=== PATIENT | female | born 1965 | race Caucasian/White ===

== ENCOUNTER → 2016-08-07 | Outpatient (CLI) | payer MEDICARE ==
[2016-08-07 15:01] LABS: CHCM 32.9; Hypochromasia Slight; Mean Platelet Volume 6.9; Poikilocytosis Slight
[2016-08-07 15:07] LABS: CH 27.3; HCT 40.6 % (34.0-46.0); HDW 3.58; HGB 13.7 gm/dL (11.4-16.0); MCH 28.1 pg (25.0-35.0); MCHC 33.8 g/dL (31.0-37.0); MCV 83.1 fL (80.0-100.0); RBC 4.88 m/uL (3.80-5.40); RDW 15.8 % (11.5-15.5); WBC 9.6 k/uL (3.8-10.6)
[2016-08-07 15:08] LABS: ALT 20 U/L (9-52); AST 18 U/L (14-36); Alkaline Phosphatase 113 U/L (38-126); Anion Gap 13 mmol/L; Blood Urea Nitrogen 11 mg/dL (7-17); Calcium 9.6 mg/dL (8.4-10.2); Carbon Dioxide 20 mmol/L (22-30); Chloride 104 mmol/L (98-107); Glucose 129 mg/dL (74-99); Non-African American GFR(MDRD) >60 (>60 ml/min/1.73 sqM); Sodium 137 mmol/L (137-145); Total Bilirubin 0.6 mg/dL (0.2-1.3); Total Protein 8.8 g/dL (6.3-8.2)
== END | disposition home or self-care (01) ==
LOC: LABWHC1 14:40
PROVIDERS: ATTEND Internal Medicine Gastroenterology
DX: K51.90 Ulcerative colitis, unspecified, without complications (principal)
CPT/HCPCS: 36415; 80053; 85027

== ENCOUNTER → 2018-02-10 | Outpatient (CLI) | payer OTHER ==
--- NOTE | 2018-02-10 16:01 | XR ---
Right ankle HISTORY: Right ankle pain 3 views of the right ankle There is marked soft tissue swelling, alignment and joint spaces are maintained. There is a lucency i nvolving the distal fibular metaphysis of the medial aspect on the oblique image there is indetermina te. Small ossific density present at the level of the medial malleolus in the frontal view is likely well-corticated. There is a small plantar calcaneal spur. Enthesophyte present at the insertion of th e Achilles tendon. IMPRESSION: Abnormal appearance of the distal fibular metaphysis may be sequela of prior trauma. CT s can to the ankle or MRI could be performed for additional evaluation. Difficult to exclude subacute f racture.
== END | disposition home or self-care (01) ==
LOC: RADXRMAIN 14:14
PROVIDERS: ATTEND Family Medicine
DX: M25.571 Pain in right ankle and joints of right foot (principal)

== ENCOUNTER → 2022-01-07 | Outpatient (CLI) | payer MEDICARE ==
--- NOTE | 2022-01-07 17:41 | CA ---
Transthoracic Echo Report Name: Denisa Mills Age: 56 Gender: F : 1965 Exam Date: 01/07/2022 14:41 Exam Location: [facility] Ht (in): 62 Wt (lb): 351 Ordering Physician: Dean Ventura MD Attending/Referring Phys: Hair Designer Arelis Chris RDCS Procedure CPT: Indications: R06.09 elizabeth, R60.0 extremity edema Cardiac Hx: Technical Quality: Fair Contrast 1: Total Dose (mL): Contrast 2: Total Dose (mL): MEASUREMENTS (Male / Female) Normal Values 2D ECHO LV Diastolic Diameter PLAX 4.3 cm 4.2 - 5.9 / 3.9 - 5.3 cm LV Systolic Diameter PLAX 2.7 cm IVS Diastolic Thickness 1.4 cm 0.6 - 1.0 / 0.6 - 0.9 cm LVPW Diastolic Thickness 1.4 cm 0.6 - 1.0 / 0.6 - 0.9 cm LV Relative Wall Thickness 0.6 RV Internal Dim ED PLAX 1.6 cm LA Systolic Diameter LX 3.1 cm 3.0 - 4.0 / 2.7 - 3.8 cm LA Volume 73.6 cm??? 18 - 58 / 22 - 52 cm??? M-MODE Aortic Root Diameter MM 3.2 cm MV E Point Septal Separation 1.1 cm AV Cusp Separation MM 2.0 cm DOPPLER AV Peak Velocity 153.1 cm/s AV Peak Gradient 9.4 mmHg AI Peak Velocity 389.8 cm/s AI Peak Gradient 60.8 mmHg AI Pressure Half Time 823.3 ms MV Area PHT 2.9 cm??? Mitral E Point Velocity 114.1 cm/s Mitral A Point Velocity 95.8 cm/s Mitral E to A Ratio 1.2 MV Deceleration Time 265.6 ms MV E' Velocity 9.4 cm/s Mitral E to MV E' Ratio 12.1 TR Peak Velocity 255.9 cm/s TR Peak Gradient 26.2 mmHg Right Ventricular Systolic Press 31.2 mmHg FINDINGS Left Ventricle Left ventricular ejection fraction is estimated at 60-65 %. Left ventricular cavity size normal. Moderately increased septal wall thickness. Moderately increased posterior wall thickness. Right Ventricle Normal right ventricular size and function. Right ventricular systolic pressure within normal limits. Right Atrium Normal right atrial size. Left Atrium Severely increased left atrial volume. Mildly increased left atrial area. No evidence for an atrial septal defect. Mitral Valve Mitral valve thickened. Mitral annular calcification. Trace mitral regurgitation. Aortic Valve Trileaflet aortic valve. Mild aortic regurgitation. Tricuspid Valve Mild tricuspid regurgitation. Pulmonic Valve Pulmonic valve not well visualized. Pericardium Normal pericardium. No pericardial effusion. Aorta Normal size aortic root and proximal ascending aorta. CONCLUSIONS Normal LV function Left atrial enlargement Mild aortic regurgitation Previewed by: Dr. Alec Matamoros MD (Electronically Signed) Final Date: 07 January 2022 17:40
== END | disposition home or self-care (01) ==
LOC: RADECHMAIN 14:29
PROVIDERS: ATTEND Family Medicine
DX: I35.1 Nonrheumatic aortic (valve) insufficiency (principal)
CPT/HCPCS: 93306

== ENCOUNTER 2022-09-13 10:32 | Emergency (ER) | payer MEDICARE ==
[2022-09-13 10:38] VITALS: BP 169/90; PULSE 75; RESP 18
[2022-09-13] MEDS ORDERED: AMOXIC-POT CLAV 875-125MG 1 EACH TAB PO STA (11:08)
[2022-09-13] MEDS ORDERED: IBUPROFEN 800 MG TAB PO STA (11:08)
--- NOTE | 2022-09-13 11:10 | ED ---
ENT HPI - General Chief complaint: Dental/Oral Stated complaint: facial swelling Time Seen by Provider: 09/13/22 10:40 Source: patient Mode of arrival: ambulatory Limitations: no limitations - History of Present Illness Initial comments: Patient is a 56-year-old female presents to the emergency department for dental pain. Patient reports intermittent dental pain for the past few years. States she is supposed to have dental work done on her teeth however she cannot afford it. She has intermittently been placed on antibiotics states she has not been on one recently. Patient unable to see her primary care provider until next week. She noticed some swelling in her upper lip today. Denies fever, chills, nausea, vomiting. - Related Data Home Medications Medication Instructions Recorded Confirmed Acetaminophen [Tylenol Arthritis] 1,300 mg PO Q8HR PRN 05/13/22 05/13/22 Furosemide [Lasix] 20 mg PO BID 05/13/22 05/13/22 Spironolactone [Aldactone] 25 mg PO DAILY 05/13/22 05/13/22 carvediloL [Coreg] 12.5 mg PO BID 05/13/22 05/13/22 Previous Rx's Medication Instructions Recorded Amoxic-Pot Clav 875-125Mg 1 tab PO BID 10 Days #20 tab 09/13/22 [Augmentin 875-125] Ibuprofen [Motrin] 800 mg PO Q8HR PRN #30 tab 09/13/22 Allergies Allergy/AdvReac Type Severity Reaction Status Date / Time Sulfa (Sulfonamide Allergy Rash/Hives Verified 09/13/22 10:37 Antibiotics) latex AdvReac Itching Verified 09/13/22 10:37 Review of Systems ROS Statement: Those systems with pertinent positive or pertinent negative responses have been documented in the HPI. ROS Other: All systems not noted in ROS Statement are negative. Past Medical History Past Medical History: Deep Vein Thrombosis (DVT), Hypertension Additional Past Medical History / Comment(s): ULCERATIVE COLITIS, LUPUS., STATES "ENLARGED HEART", HX OF DVTS WITH FILTER., SWELLING IN LEGS- HAS SORES ON LEFT LEG FROM "WATER BLISTERS" AND A SCRAPE., STATES HAVING OCCASIONAL BLOOD IN STOOL AND PAIN RIGHT SIDE. History of Any Multi-Drug Resistant Organisms: None Reported Past Surgical History: Adenoidectomy, Cholecystectomy, Hernia Repair, Tonsillectomy, Uterine Ablation Additional Past Surgical History / Comment(s): VENA CAVA FILTER, ABDOMINAL HERNIA. ,COLONOSCOPY Past Anesthesia/Blood Transfusion Reactions: No Reported Reaction Additional Past Anesthesia/Blood Transfusion Reaction / Comment(s): BLOOD DESHPANDE SFUSIONS IN PAST-NO COMPLICATIONS Past Psychological History: No Psychological Hx Reported Smoking Status: Former smoker Past Alcohol Use History: None Reported Past Drug Use History: None Reported - Past Family History Mother Family Medical History: Asthma, COPD, Coronary Artery Disease (CAD), Diabetes Mellitus, Dialysis, Hypertension, Myocardial Infarction ([place]), Osteoarthritis (OA), Renal Disease Father Family Medical History: Hypertension, Myocardial Infarction ([place]) General Exam Limitations: no limitations General appearance: alert, in no apparent distress Head exam: Present: atraumatic, normocephalic, normal inspection ENT exam: Absent: normal oropharynx (Extremely poor widespread dentition. No evidence of abscess) Neck exam: Present: normal inspection. Absent: tenderness, meningismus, lymphadenopathy Respiratory exam: Present: normal lung sounds bilaterally. Absent: respiratory distress, wheezes, rales, rhonchi, stridor Cardiovascular Exam: Present: regular rate, normal rhythm, normal heart sounds. Absent: systolic murmur, diastolic murmur, rubs, gallop, clicks Neurological exam: Present: alert, oriented X3, CN II-XII intact Psychiatric exam: Present: normal affect, normal mood Skin exam: Present: warm, dry, intact, normal color. Absent: rash Course Vital Signs 09/13/22 09/13/22 10:35 11:18 Temperature 98 F 97.9 F Pulse Rate 75 Respiratory 18 Rate Blood Pressure 169/90 O2 Sat by Pulse 97 Oximetry Medical Decision Making - Medical Decision Making Was pt. sent in by a medical professional or institution (, PA, MOTOR RUNNER, urgent care, hospital, or care home...) When possible be specific @ -No Did you speak to anyone other than the patient for history (EMS, parent, family, police, friend...)? What history was obtained from this source @ -No Did you review nursing and triage notes (agree or disagree)? Why? @ -I reviewed and agree with nursing and triage notes Were old charts reviewed (outside hosp., previous admission, EMS record, old EKG, old radiological studies, urgent care reports/EKG's, care home records)? Report findings @ -No old charts were reviewed Differential Diagnosis (chest pain, altered mental status, abdominal pain women, abdominal pain men, vaginal bleeding, weakness, fever, dyspnea, syncope, headac he, dizziness, GI bleed, back pain, seizure, CVA, palpatations, mental health)? @ -Dental infection, dental abscess, dental cavity EKG interpreted by me (3pts min.). @ -None X-rays interpreted by me (1pt min.). @ -None done CT interpreted by me (1pt min.). @ -None done U/S interpreted by me (1pt. min.). @ -None done What testing was considered but not performed or refused? (CT, X-rays, U/S, labs)? Why? @ -None What meds were considered but not given or refused? Why? @ -None Did you discuss the management of the patient with other professionals (professionals i.e. , PA, MOTOR RUNNER, lab, RT, psych nurse, social science teacher, incident response coordinator, teacher, loan officer, case reviewer)? Give summary @ -No Was smoking cessation discussed for >3mins.? @ -No Was critical care preformed (if so, how long)? @ -No Were there social determinants of health that impacted care today? How? (Homelessness, low income, unemployed, alcoholism, drug addiction, transportation, low edu. Level, literacy, decrease access to med. care, fci, rehab)? @ -No Was there de-escalation of care discussed even if they declined (Discuss DNR or withdrawal of care, Hospice)? DNR status @ -No What co-morbidities impacted this encounter? (DM, HTN, Smoking, COPD, CAD, Cancer, CVA, ARF, Chemo, Hep., AIDS, mental health diagnosis, sleep apnea, morbid obesity)? @ -None Was patient admitted / discharged? Hospital course, mention meds given and route, prescriptions, significant lab abnormalities, going to OR and other pertinent info. @ -Discharged Undiagnosed new problem with uncertain prognosis? @ -No Drug Therapy requiring intensive monitoring for toxicity (Heparin, Nitro, Insulin, Cardizem)? @ -No Were any procedures done? @ -[No] Diagnosis/symptom? @ -Dental infection Acute, or Chronic, or Acute on Chronic? @ -acute Uncomplicated (without systemic symptoms) or Complicated (systemic symptoms)? @ Uncomplicated Side effects of treatment? @ -[No] Exacerbation, Progression, or Severe Exacerbation? @ -[No] Poses a threat to life or bodily function? How? (Chest pain, [place], [place], pneumonia, PE, COPD, DKA, ARF, appy, cholecystitis, CVA, Diverticulitis, Homicidal, Suicidal, threat to staff... and all critical care pts) @ -[No] Dr. Hopkins is my attending Disposition Clinical Impression: Dental infection Disposition: HOME SELF-CARE Condition: Good Instructions (If sedation given, give patient instructions): Dental Abscess (ED), Toothache (ED) Additional Instructions: Alternate Tylenol every 3-4 hours for pain. Take antibiotic as directed. Return to the emergency department if you experience new, concerning, or worseni ng symptoms. Prescriptions: Amoxic-Pot Clav 875-125Mg [Augmentin 875-125] 1 tab PO BID 10 Days #20 tab Ibuprofen [Motrin] 800 mg PO Q8HR PRN #30 tab PRN Reason: Pain Is patient prescribed a controlled substance at d/c from ED?: No Referrals: Dean Ventura MD [Primary Care Provider] - 1-2 days
[2022-09-13 11:20] VITALS: TEMP 97.9
== END 2022-09-13 11:20 | disposition home or self-care (01) ==
LOC: EC 10:32
DX: K04.7 Periapical abscess without sinus (principal); I10 Essential (primary) hypertension; Z79.899 Other long term (current) drug therapy; Z88.2 Allergy status to sulfonamides; Z91.040 Latex allergy status; Z87.891 Personal history of nicotine dependence; Z86.718 Personal history of other venous thrombosis and embolism
CPT/HCPCS: 99283

== ENCOUNTER → 2023-05-21 | Outpatient (CLI) | payer MEDICARE ==
--- NOTE | 2023-05-21 13:33 | CT ---
EXAMINATION: CT CHEST, ABDOMEN AND PELVIS WITH IV CONTRAST DATE OF EXAMINATION: 05/21/2023. COMPARISON: None available. INDICATION: Malignant neoplasm of the endometrium. PROCEDURE: Axial CT of the chest, abdomen and pelvis was performed following the intravenous adminis tration of 80 ml Isovue 370. Coronal and sagittal reformats were performed. CT dose lowering techniq ues were used, to include: automated exposure control, adjustment for patient size, and/or use of ite rative reconstruction. FINDINGS: CHEST: Mediastinum and Jeanne: There is no axillary, mediastinal or hilar lymphadenopathy. Pleural and Pericardial spaces: There are no pleural or pericardial effusions. Cardiovascular: There is mild vascular calcification in the aortic arch without evidence of aneurysma l dilation or dissection. Mild patchy coronary calcifications are also seen. Pulmonary Artery: There are no central pulmonary arterial filling defects. Lung Parenchyma and Airways: There is a calcified granuloma in the right lower lobe. The lungs otherw ise appear clear. ABDOMEN: Liver and Biliary system: Normal. Adrenal glands: Normal. Kidneys and ureters: Normal. Spleen: Normal. Pancreas: Normal. Gallbladder: Surgically absent. Lymph nodes, Peritoneum and mesentery: There is no mesenteric or retroperitoneal lymphadenopathy. Gastrointestinal tract: There are no dilated loops of bowel or free intraperitoneal air. . The appe ndix is not clearly seen with no secondary changes of appendicitis is identified. Aorta/IVC: There is mild vascular calcification throughout the abdominal aorta without evidence of aneurysmal dilation or dissection. IVC filter is present.. Abdominal wall: Prior mesh repair of the abdominal wall is noted which measure appears to be externa l to the rectus sheath. There appears to be small areas of herniation containing bowel below the mesh .. PELVIS: Fluid: There is no free fluid in the pelvis. Lymph Nodes: There is no pelvic or inguinal lymphadenopathy.. Urinary bladder: Normal. BONES: There are no osseous destructive lesions.. ADDITIONAL SIGNIFICANT FINDINGS: None. IMPRESSION: 1. No definitive evidence of metastatic disease to chest, abdomen or pelvis. 2. Additional findings as above.
== END | disposition home or self-care (01) ==
LOC: RADCTMAIN 10:05
PROVIDERS: ATTEND Obstetrics & Gynecology Gynecologic Oncology
DX: J98.4 Other disorders of lung (principal); C54.1 Malignant neoplasm of endometrium; J84.10 Pulmonary fibrosis, unspecified; I70.0 Atherosclerosis of aorta; I25.10 Atherosclerotic heart disease of native coronary artery without angina pectoris; Z90.49 Acquired absence of other specified parts of digestive tract
CPT/HCPCS: 71260; 74177; Q9967